=== PATIENT | male | born 1995 | race Caucasian/White ===

== ENCOUNTER 2021-05-28 09:58 | Emergency (ER) | payer OTHER ==
[~2021-05-28] VITALS: Ht 190.5 cm; Wt 97.7 kg
[2021-05-28 10:06] VITALS: BP 143/103; PULSE 61; TEMP 98.2
[2021-05-28] MEDS ORDERED: POLYMYXIN B/TRIMETH OS (10:48)
== END 2021-05-28 11:06 | disposition home or self-care (01) ==
LOC: COL.ER 09:58
DX: S05.02XA Injury of conjunctiva and corneal abrasion without foreign body, left eye, initial encounter (principal); Z88.2 Allergy status to sulfonamides; X58.XXXA Exposure to other specified factors, initial encounter